=== PATIENT | female | born 1985 | race Caucasian/White ===

== ENCOUNTER 2017-07-01 23:09 | Emergency (ER) | payer BC ==
[~2017-07-01] VITALS: Ht 160 cm; Wt 61.8 kg
[2017-07-02] MEDS ORDERED: HYDROCODONE/ACETAMINOPHEN 5-325 MG TABLET PO ONE (02:15)
[2017-07-02 02:33] VITALS: BP 118/78
== END 2017-07-02 02:34 | disposition home or self-care (01) ==
LOC: EMS 23:11
DX: S30.0XXA Contusion of lower back and pelvis, initial encounter (principal); W01.0XXA Fall on same level from slipping, tripping and stumbling without subsequent striking against object, initial encounter; Y93.89 Activity, other specified; Y92.89 Other specified places as the place of occurrence of the external cause; Y99.8 Other external cause status; Z88.1 Allergy status to other antibiotic agents
CPT/HCPCS: 72220; 81025; 99284

== ENCOUNTER 2017-08-12 03:09 | Emergency (ER) | payer BC ==
[~2017-08-12] VITALS: Ht 160 cm; Wt 65.9 kg
[2017-08-12 04:24] VITALS: BP 132/82
== END 2017-08-12 04:26 | disposition home or self-care (01) ==
LOC: EMS 03:10
DX: S30.0XXA Contusion of lower back and pelvis, initial encounter (principal); Z88.1 Allergy status to other antibiotic agents; Z88.8 Allergy status to other drugs, medicaments and biological substances; W19.XXXA Unspecified fall, initial encounter; Y93.89 Activity, other specified; Y92.89 Other specified places as the place of occurrence of the external cause; Y99.8 Other external cause status
CPT/HCPCS: 99281